=== PATIENT | female | born 1975 | race African-American/Black ===

== ENCOUNTER 2017-02-05 17:05 | Observation (INO) | payer SELFPAY ==
[2016-02-16 16:40] VITALS: BP 132/87
[~2017-02-05 17:05] MED LIST: IBUP-1060 PO; MUPI15CR TP; SULF1TAB24 PO
--- NOTE | 2017-02-05 19:32 | RAD ---
Examination: Ultrasound biophysical profile HISTORY: History of biophysical profile for intrauterine growth attenuation COMPARISON: None available Findings: breathing movement is 2 / 2 motion is 2 /2 tone is 2 /2 Amniotic fluid volume is 2 / 2 Amniotic fluid index 8.4 cm presentation is cephalic Placenta is anterior. heart rate 141 bpm. LMP 06/03/2016 Clinical age 35 weeks and 2 days with estimated date of delivery 03/10/2017 by LMP. IMPRESSION: Normal biophysical profile score of 8 / 8. Electronically signed by: Toney Amado MD (02/05/2017 7:29 PM) [facility]
== END 2017-02-05 21:14 | disposition home or self-care (01) ==
LOC: 3 SO LND 17:05
PROVIDERS: ADMIT Obstetrics & Gynecology; ATTEND Obstetrics & Gynecology
DX: O36.5930 Maternal care for other known or suspected poor fetal growth, third trimester, not applicable or unspecified (principal); Z3A.35 35 weeks gestation of pregnancy
CPT/HCPCS: 76819; G0378; G0379

== ENCOUNTER 2017-02-20 17:02 | Observation (INO) | payer SELFPAY ==
[2016-02-16 16:40] VITALS: BP 132/87
--- NOTE | 2017-02-20 18:06 | RAD ---
Biophysical profile: Clinical indications: IUGR.. COMPARISON: February 05, 2017. Findings: A single intrauterine is present in the cephalic position. heart rate is 150. breathing movements: 2. motion: 2. tone: 2. Amniotic fluid volume: 2. Therefore, the biophysical profile score is 8 out of 8. Cervical length: Not visualized. NAEL using the 4 quadrant method is 9.7 cm. Placenta is anterior. Impression: Biophysical profile score is 8 out of 8. Electronically signed by: Trung Love MD (02/20/2017 6:03 PM) [facility]
== END 2017-02-20 18:58 | disposition home or self-care (01) ==
LOC: 3 SO LND 17:02
PROVIDERS: ADMIT Obstetrics & Gynecology; ATTEND Obstetrics & Gynecology
DX: O36.5930 Maternal care for other known or suspected poor fetal growth, third trimester, not applicable or unspecified (principal)
CPT/HCPCS: 76819; G0378; G0379; 59025

== ENCOUNTER 2017-02-25 04:47 | Inpatient (IN) | payer SELFPAY ==
[~2017-02-25] VITALS: Ht 165.1 cm; Wt 79.4 kg
[2017-02-25] MEDS ORDERED: LIDOCAINE 1% PF 30 ML VIAL. INJ PRN (05:15)
[2017-02-25] MEDS ORDERED: fentaNYL PF VIAL 100 MCG/2 ML VIAL IV PRN (05:15)
[2017-02-25] MEDS ORDERED: 0.9 % SODIUM CHLORIDE 10 ML DISP.SYRIN. IV PRN ×2 (05:15→19:00)
[2017-02-25] MEDS ORDERED: TERBUTALINE 1 MG/ML VIAL. SQ PRN (05:15)
[2017-02-25] MEDS ORDERED: IBUPROFEN 600 MG TABLET. PO PRN (05:15)
[2017-02-25] MEDS ORDERED: OXYTOCIN 30 UNIT/500 ML PREMIX 500 ML IV PRN ×3 (05:15→19:00)
[2017-02-25 06:02] VITALS: BP 102/53
[2017-02-25] MEDS ORDERED: OXYTOCIN in NORMAL SALINE PREMIX 30 UNIT/500 ML BAG. IV ONE (06:30)
[2017-02-25] MEDS ORDERED: ceFAZolin 2GM PREMIX 2 GM/50 ML BAG IV ONE (06:30)
[2017-02-25 07:01] LABS: HEMATOCRIT 31.3 % (36.0-47.0); HEMOGLOBIN 10.8 g/dL (12.0-15.5); RED BLOOD COUNT 3.5 x10^6/uL (3.50-5.40); RED CELL DISTRIBUTION WIDTH 13.8 % (11.5-14.5); WHITE BLOOD COUNT 6.2 x10^3/uL (4.0-11.0)
[2017-02-25] MEDS ORDERED: CITRIC ACID/SODIUM CITRATE 30 ML SOLUTION. ONE (07:09)
[2017-02-25] MEDS ORDERED: FLU VACC QS2017-18 (36MOS+)/PF 0.5 ML SYRINGE. VAX IM ONE (09:00)
[2017-02-25] MEDS: IV RINGERS,LACTATED 1000ML 1,000 ML IV SCH ×2 (10:06→15:15)
--- NOTE | 2017-02-25 16:41 | PDOC1 ---
OB - History Hx of Present Care: Good Care Ultrasounds: Normal mid trimester US Obstetrical Complications: None Medical Complications: None Past Family/Social History * Past Medical, Surgical, Family and Obstetric Histories reviewed from chart. Rubella: Immune RPR/VDRL: Negative GBS Status: Negative HBsAG: Negative OB - Chief Complaint & HPI Date of Admission: Date of Admission: Feb 25, 2017 at 04:47 Chief Complaint/History : 11 Para: 10 EGA: 38 Reason for admission: induction of labor Indication for induction: other (IUGR) Admission Nurse Assessment Rev: Yes Problems: OB - Admission Exam Physical Exam Vitals: VS - Last 72 Hours, by Label Date Time Temp Pulse Resp B/P (MAP) Pulse Ox O2 Delivery O2 Flow Rate FiO2 02/25/17 06:02 98.0 96 20 102/53 (69) Room Air 98.0 HEENT: Normal Heart: Regular Rate Lungs: Clear, Equal Abdomen: Gravid, Non tender, Soft Extremities: Edema Reflexes: Normal Cervical Dilatation: 2cm Effacement: 50% Station: -3 Membranes: Intact Heart Rate: Normal Accelerations: Accelerations Present Short Term Variability: Present Health Counselor Variability: Moderate Contractions on Admission: >10 Minutes Apart Intensity: Mild Text A: 38 wks IUP IUGR Grand Multip P: Admit for IOL pitocin. RICHARD BLUE Jr, MD Feb 25, 2017 16:41
[2017-02-25] MEDS ORDERED: miSOPROStol 200MCG TAB 200 MCG TABLET ONE (17:31)
[2017-02-25] MEDS ORDERED: METHYLERGONOVINE MALEATE 0.2 MG/ML VIAL. IM ONE (17:32)
--- NOTE | 2017-02-25 18:57 | PDOC ---
VAGINAL DELIVERY DATE DATE: 02/25/17 TIME: 18:56 : Other (11) Para: Other (11) EGA: 38 VAGINAL DELIVERY: VTX VACCUM ASSISTED: No PLACENTA: Spontaneous 8/9 SEX: Male WEIGHT Weight [ 2855 gm] Nuchal Cord: No Amniotic Fluid: Clear PAIN: Natural EPISIOTOMY: No EXTENSION: No EBL 300 ml COMPLICATIONS none CONDITION pt. stable Signs of Intrauterine Infectio: None Shoulder Dystocia: No Problems: RICHARD BLUE Jr, MD Feb 25, 2017 18:57
[2017-02-25] MEDS ORDERED: PHENYLEPH/MINERAL OIL/PETROLAT RECTAL OINTMENT 28GM TUBE. RC PRN (19:00)
[2017-02-25] MEDS ORDERED: ZOLPIDEM 5 MG TABLET. PO PRN (19:00)
[2017-02-25] MEDS ORDERED: oxyCODONE/APAP 5/325 1 TAB TABLET PO PRN (19:00)
[2017-02-25] MEDS ORDERED: MMR per PROTOCOL. MC PRN (19:00)
[2017-02-25] MEDS ORDERED: SIMETHICONE 80 MG TAB.CHEW PO PRN (19:00)
[2017-02-25] MEDS ORDERED: HYDROCORTISONE 1% TOPICAL OINTMENT 30GM TUBE. TP PRN (19:00)
[2017-02-25] MEDS ORDERED: diphenhydrAMINE HCL 25 MG CAPSULE PO PRN (19:00)
[2017-02-25] MEDS ORDERED: ACETAMINOPHEN 325 MG TABLET. PO PRN (19:00)
[2017-02-25] MEDS ORDERED: DOCUSATE SODIUM 100 MG CAPSULE. PO PRN (19:00)
[2017-02-25] MEDS ORDERED: MAGNESIUM HYDROXIDE 2,400 MG/30 ML ORAL.SUSP. PO PRN (19:00)
[2017-02-25] MEDS ORDERED: BENZOCAINE 20% TOPICAL AEROSOL SPRAY 57GM CAN. TP PRN (19:00)
[2017-02-25] MEDS ORDERED: MAG HYDROX/ALUMINUM HYD/SIMETH 30 ML ORAL.SUSP PO PRN (19:00)
[2017-02-25] MEDS: IBUPROFEN 800 MG TABLET. PO PRN (20:40)
[2017-02-25 21:15] VITALS: BP 88/53
[2017-02-25 22:43] VITALS: BP 88/56
[2017-02-26 04:52] LABS: BASO % 0 % (0-3); EOS % 1 % (0-3); HEMATOCRIT 33.2 % (36.0-47.0); HEMOGLOBIN 11.3 g/dL (12.0-15.5); LYMPH # 1.9 x10^3/uL (1.0-4.8); LYMPH % 22 % (24-48); MEAN CORPUSCULAR HEMOGLOBIN 31 pg (25-35); MEAN CORPUSCULAR HGB CONC 34 g/dL (31-37); MEAN CORPUSCULAR VOLUME 91 fL (79-100); MONO % 7 % (0-9); NEUT % 71 % (31-73); PLATELET COUNT 198 x10^3/uL (140-400); RED BLOOD COUNT 3.65 x10^6/uL (3.50-5.40); WHITE BLOOD COUNT 8.9 x10^3/uL (4.0-11.0)
[2017-02-26 05:38] VITALS: BP 92/63
[2017-02-26] MEDS ORDERED: INFLUENZA VAX SCREEN BY RX. MC ONE (06:15)
[2017-02-26] MEDS ORDERED: FERROUS SULFATE 325 MG TABLET. PO SCH (08:00)
--- NOTE | 2017-02-26 10:02 | PDOC ---
OB Progress Note Date of Service 02/26/17 Time of Evaluation 1000 Notes PT. feeling well. Pain controlled. Lochia minimal. Breast feeding. Lab Laboratory Tests Test 02/25/17 06:45 02/26/17 04:30 White Blood Count 6.2 x10^3/uL (4.0-11.0) 8.9 x10^3/uL (4.0-11.0) Red Blood Count 3.50 x10^6/uL (3.50-5.40) 3.65 x10^6/uL (3.50-5.40) Hemoglobin 10.8 g/dL (12.0-15.5) 11.3 g/dL (12.0-15.5) Hematocrit 31.3 % (36.0-47.0) 33.2 % (36.0-47.0) Mean Corpuscular Volume 90 fL (79-100) 91 fL (79-100) Mean Corpuscular Hemoglobin 31 pg (25-35) 31 pg (25-35) Mean Corpuscular Hemoglobin Concent 35 g/dL (31-37) 34 g/dL (31-37) Red Cell Distribution Width 13.8 % (11.5-14.5) 14.0 % (11.5-14.5) Platelet Count 191 x10^3/uL (140-400) 198 x10^3/uL (140-400) RPR Titer Additional Testing Non reactive (Non Reactive) Neutrophils (%) (Auto) 71 % (31-73) Lymphocytes (%) (Auto) 22 % (24-48) Monocytes (%) (Auto) 7 % (0-9) Eosinophils (%) (Auto) 1 % (0-3) Basophils (%) (Auto) 0 % (0-3) Neutrophils # (Auto) 6.3 x10^3uL (1.8-7.7) Lymphocytes # (Auto) 1.9 x10^3/uL (1.0-4.8) Monocytes # (Auto) 0.6 x10^3/uL (0.0-1.1) Eosinophils # (Auto) 0.0 x10^3/uL (0.0-0.7) Basophils # (Auto) 0.0 x10^3/uL (0.0-0.2) Laboratory Tests Test 02/26/17 04:30 White Blood Count 8.9 x10^3/uL (4.0-11.0) Red Blood Count 3.65 x10^6/uL (3.50-5.40) Hemoglobin 11.3 g/dL (12.0-15.5) Hematocrit 33.2 % (36.0-47.0) Mean Corpuscular Volume 91 fL (79-100) Mean Corpuscular Hemoglobin 31 pg (25-35) Mean Corpuscular Hemoglobin Concent 34 g/dL (31-37) Red Cell Distribution Width 14.0 % (11.5-14.5) Platelet Count 198 x10^3/uL (140-400) Neutrophils (%) (Auto) 71 % (31-73) Lymphocytes (%) (Auto) 22 % (24-48) Monocytes (%) (Auto) 7 % (0-9) Eosinophils (%) (Auto) 1 % (0-3) Basophils (%) (Auto) 0 % (0-3) Neutrophils # (Auto) 6.3 x10^3uL (1.8-7.7) Lymphocytes # (Auto) 1.9 x10^3/uL (1.0-4.8) Monocytes # (Auto) 0.6 x10^3/uL (0.0-1.1) Eosinophils # (Auto) 0.0 x10^3/uL (0.0-0.7) Basophils # (Auto) 0.0 x10^3/uL (0.0-0.2) Medications Current Medications Sodium Chloride (Normal Saline Flush) 3 ml QSHIFT PRN IV AFTER MEDS AND BLOOD DRAWS; Start 02/25/17 at 05:15 Ringer's Solution 1,000 ml @ 125 mls/hr Q8H IV Last administered on 02/25/17t 15:15; Start 02/25/17 at 05:07 Fentanyl Citrate (Fentanyl 2ml Vial) 100 mcg PRN Q30MIN PRN IV Severe pain; Start 02/25/17 at 05:15 Terbutaline Sulfate (Brethine) 0.25 mg 1X PRN PRN SQ SEE COMMENTS; Start at 05:15; Stop 02/26/17 at 05:14; Status DC Lidocaine HCl 30 ml 1X PRN PRN INJ SEE COMMENTS; Start 02/25/17 at 05:15; Stop 02/27/17 at 05:14 Oxytocin/Sodium Chloride 500 ml @ 0 mls/hr CONT PRN IV SEE I/O RECORD; Start at 05:15 Oxytocin/Sodium Chloride 500 ml @ 0 mls/hr CONT PRN PRN IV Post delivery bleeding; Start 02/25/17 at 05:15 Ibuprofen (Motrin) 600 mg PRN Q6HRS PRN PO PAIN; Start 02/25/17 at 05:15 Info (Do NOT chart on this placeholder) 1 each 1X ONCE MC ; Start 02/26/17 at 06:15; Stop 02/26/17 at 06:16; Status UNV Influenza Virus Vaccine Quadrival (Fluarix Quad [id number] Syringe) 0.5 ml ONCE ONCE VAX IM ; Start 02/25/17 at 09:00; Stop 02/25/17 at 09:01; Status DC Citric Acid/ Sodium Citrate (Bicitra) 30 ml STK-MED ONCE .ROUTE ; Start at 07:09; Stop 02/25/17 at 07:10; Status DC Cefazolin Sodium/ Dextrose 50 ml @ 100 mls/hr 1X ONCE IV ; Start 02/25/17 at 07:15; Stop 02/25/17 at 07:44; Status DC Oxytocin/Sodium Chloride (Oxytocin Premix Infusion) 30 unit STK-MED ONCE IV ; Start 02/25/17 at 06:30; Stop 02/25/17 at 12:14; Status DC Cefazolin Sodium/ Dextrose (Ancef 2gm Premix) 2 gm STK-MED ONCE IV ; Start 02/25 at 06:30; Stop 02/25/17 at 12:14; Status DC Misoprostol (Cytotec 200mcg Tab) 200 mcg STK-MED ONCE .ROUTE ; Start 02/25/17 at 17:31; Stop 02/25/17 at 17:32; Status DC Methylergonovine Maleate (Methergine) 0.2 mg STK-MED ONCE IM ; Start 02/25/17 at 17:32; Stop 02/25/17 at 17:33; Status DC Sodium Chloride (Normal Saline Flush) 10 ml QSHIFT PRN IV AFTER MEDS AND BLOOD DRAWS; Start 02/25/17 at 19:00 Oxytocin/Sodium Chloride 500 ml @ 62.5 mls/hr CONT PRN IV SEE I/O RECORD; Start 02/25/17 at 19:00; Stop 02/26/17 at 02:59; Status DC Acetaminophen (Tylenol) 650 mg PRN Q6HRS PRN PO MILD PAIN / TEMP; Start at 19:00 Ibuprofen (Motrin) 800 mg PRN Q8HRS PRN PO INFLAMMATION/PAIN PREVENTION Last administered on 02/25/17 20:40; Start 02/25/17 at 19:00 Docusate Sodium (Colace) 100 mg PRN BID PRN PO CONSTIPATION; Start 02/25/17 at 19:00 Magnesium Hydroxide (Milk Of Magnesia) 2,400 mg PRN DAILY PRN PO CONSTIPATION; Start 02/25/17 at 19:00 Al Hydroxide/Mg Hydroxide (Mylanta Plus Xs) 30 ml PRN Q4HRS PRN PO HEARTBURN / GAS; Start 02/25/17 at 19:00 Simethicone (Gas-X) 80 mg PRN AFTMEALHC PRN PO GAS / BLOATING; Start 02/25/17 at 19:00 Diphenhydramine HCl (Benadryl) 25 mg PRN Q6HRS PRN PO ITCHING; Start 02/25/17 at 19:00 Benzocaine (Americaine) 1 spray PRN QID PRN TP TOPICAL PAIN Last administered on 02/25/17 20:41; Start 02/25/17 at 19:00 Phenyleph/Shark Oil/Min Oil/Petrol (Preparation H) 1 dyllan PRN QID PRN RC RECTAL PAIN; Start 02/25/17 at 19:00 Hydrocortisone (Cortaid) 1 dyllan PRN QID PRN TP PERINEAL PAIN; Start 02/25/17 at 19:00 Ferrous Sulfate (Feosol) 325 mg BIDWMEALS PO ; Start 02/26/17 at 08:00; Stop at 08:00; Status DC Zolpidem Tartrate (Ambien) 5 mg PRN QHS PRN PO INSOMNIA, MAY REPEAT X1; Start 02/25/17 at 19:00 Info (Do NOT chart on this placeholder) 1 ea 1X PRN PRN MC SEE COMMENTS; Start 02/25/17 at 19:00 Info (Do NOT chart on this placeholder) 1 ea 1X PRN PRN MC SEE COMMENTS; Start 02/25/17 at 19:00 Oxycodone/ Acetaminophen (Percocet 5/325) 2 tab PRN Q4HRS PRN PO MODERATE PAIN , SEVERE PAIN; Start 02/25/17 at 19:00 Active Scripts Active Bactroban Cream (Mupirocin) 15 Gm Cream..g. 1 Dyllan TP TID Bactrim Ds Tablet (Sulfamethoxazole/Trimethoprim) 1 Each Tablet 1 Tab PO BID Ibuprofen 800 Mg Tablet 800 Mg PO PRN Q8HRS PRN Exam Abd: soft, non tender, fundus firm Assessment PPD#1 s/p Plan of Care: Continue current Tx, Mgmt RICHARD BLUE Jr, MD Feb 26, 2017 10:02
[2017-02-26 10:40] VITALS: BP 104/75
[2017-02-26] MEDS: IBUPROFEN 800 MG TABLET. PO PRN ×2 (12:49→22:14)
[2017-02-26 16:20] VITALS: BP 109/71
[2017-02-26 20:58] VITALS: BP 95/64
[2017-02-27 06:00] VITALS: BP 126/72
--- NOTE | 2017-02-27 08:40 | PDOC ---
OB Progress Note Date of Service 02/27/17 Time of Evaluation 0840 Notes PT. feeling well. No complaints. Lab Laboratory Tests Test 02/26/17 04:30 White Blood Count 8.9 x10^3/uL (4.0-11.0) Red Blood Count 3.65 x10^6/uL (3.50-5.40) Hemoglobin 11.3 g/dL (12.0-15.5) Hematocrit 33.2 % (36.0-47.0) Mean Corpuscular Volume 91 fL (79-100) Mean Corpuscular Hemoglobin 31 pg (25-35) Mean Corpuscular Hemoglobin Concent 34 g/dL (31-37) Red Cell Distribution Width 14.0 % (11.5-14.5) Platelet Count 198 x10^3/uL (140-400) Neutrophils (%) (Auto) 71 % (31-73) Lymphocytes (%) (Auto) 22 % (24-48) Monocytes (%) (Auto) 7 % (0-9) Eosinophils (%) (Auto) 1 % (0-3) Basophils (%) (Auto) 0 % (0-3) Neutrophils # (Auto) 6.3 x10^3uL (1.8-7.7) Lymphocytes # (Auto) 1.9 x10^3/uL (1.0-4.8) Monocytes # (Auto) 0.6 x10^3/uL (0.0-1.1) Eosinophils # (Auto) 0.0 x10^3/uL (0.0-0.7) Basophils # (Auto) 0.0 x10^3/uL (0.0-0.2) Medications Current Medications Sodium Chloride (Normal Saline Flush) 3 ml QSHIFT PRN IV AFTER MEDS AND BLOOD DRAWS; Start 02/25/17 at 05:15 Ringer's Solution 1,000 ml @ 125 mls/hr Q8H IV Last administered on 02/25/17t 15:15; Start 02/25/17 at 05:07 Fentanyl Citrate (Fentanyl 2ml Vial) 100 mcg PRN Q30MIN PRN IV Severe pain; Start 02/25/17 at 05:15 Terbutaline Sulfate (Brethine) 0.25 mg 1X PRN PRN SQ SEE COMMENTS; Start at 05:15; Stop 02/26/17 at 05:14; Status DC Lidocaine HCl 30 ml 1X PRN PRN INJ SEE COMMENTS; Start 02/25/17 at 05:15; Stop 02/27/17 at 05:14; Status DC Oxytocin/Sodium Chloride 500 ml @ 0 mls/hr CONT PRN IV SEE I/O RECORD; Start at 05:15 Oxytocin/Sodium Chloride 500 ml @ 0 mls/hr CONT PRN PRN IV Post delivery bleeding; Start 02/25/17 at 05:15 Ibuprofen (Motrin) 600 mg PRN Q6HRS PRN PO PAIN; Start 02/25/17 at 05:15 Info (Do NOT chart on this placeholder) 1 each 1X ONCE MC ; Start 02/26/17 at 06:15; Stop 02/26/17 at 06:16; Status UNV Influenza Virus Vaccine Quadrival (Fluarix Quad [id number] Syringe) 0.5 ml ONCE ONCE VAX IM ; Start 02/25/17 at 09:00; Stop 02/25/17 at 09:01; Status DC Citric Acid/ Sodium Citrate (Bicitra) 30 ml STK-MED ONCE .ROUTE ; Start at 07:09; Stop 02/25/17 at 07:10; Status DC Cefazolin Sodium/ Dextrose 50 ml @ 100 mls/hr 1X ONCE IV ; Start 02/25/17 at 07:15; Stop 02/25/17 at 07:44; Status DC Oxytocin/Sodium Chloride (Oxytocin Premix Infusion) 30 unit STK-MED ONCE IV ; Start 02/25/17 at 06:30; Stop 02/25/17 at 12:14; Status DC Cefazolin Sodium/ Dextrose (Ancef 2gm Premix) 2 gm STK-MED ONCE IV ; Start 02/25 at 06:30; Stop 02/25/17 at 12:14; Status DC Misoprostol (Cytotec 200mcg Tab) 200 mcg STK-MED ONCE .ROUTE ; Start 02/25/17 at 17:31; Stop 02/25/17 at 17:32; Status DC Methylergonovine Maleate (Methergine) 0.2 mg STK-MED ONCE IM ; Start 02/25/17 at 17:32; Stop 02/25/17 at 17:33; Status DC Sodium Chloride (Normal Saline Flush) 10 ml QSHIFT PRN IV AFTER MEDS AND BLOOD DRAWS; Start 02/25/17 at 19:00 Oxytocin/Sodium Chloride 500 ml @ 62.5 mls/hr CONT PRN IV SEE I/O RECORD; Start 02/25/17 at 19:00; Stop 02/26/17 at 02:59; Status DC Acetaminophen (Tylenol) 650 mg PRN Q6HRS PRN PO MILD PAIN / TEMP; Start at 19:00 Ibuprofen (Motrin) 800 mg PRN Q8HRS PRN PO INFLAMMATION/PAIN PREVENTION Last administered on 02/26/17 22:14; Start 02/25/17 at 19:00 Docusate Sodium (Colace) 100 mg PRN BID PRN PO CONSTIPATION; Start 02/25/17 at 19:00 Magnesium Hydroxide (Milk Of Magnesia) 2,400 mg PRN DAILY PRN PO CONSTIPATION; Start 02/25/17 at 19:00 Al Hydroxide/Mg Hydroxide (Mylanta Plus Xs) 30 ml PRN Q4HRS PRN PO HEARTBURN / GAS; Start 02/25/17 at 19:00 Simethicone (Gas-X) 80 mg PRN AFTMEALHC PRN PO GAS / BLOATING; Start 02/25/17 at 19:00 Diphenhydramine HCl (Benadryl) 25 mg PRN Q6HRS PRN PO ITCHING; Start 02/25/17 at 19:00 Benzocaine (Americaine) 1 spray PRN QID PRN TP TOPICAL PAIN Last administered on 02/25/17 20:41; Start 02/25/17 at 19:00 Phenyleph/Shark Oil/Min Oil/Petrol (Preparation H) 1 dyllan PRN QID PRN RC RECTAL PAIN; Start 02/25/17 at 19:00 Hydrocortisone (Cortaid) 1 dyllan PRN QID PRN TP PERINEAL PAIN; Start 02/25/17 at 19:00 Ferrous Sulfate (Feosol) 325 mg BIDWMEALS PO ; Start 02/26/17 at 08:00; Stop at 08:00; Status DC Zolpidem Tartrate (Ambien) 5 mg PRN QHS PRN PO INSOMNIA, MAY REPEAT X1; Start 02/25/17 at 19:00 Info (Do NOT chart on this placeholder) 1 ea 1X PRN PRN MC SEE COMMENTS; Start 02/25/17 at 19:00 Info (Do NOT chart on this placeholder) 1 ea 1X PRN PRN MC SEE COMMENTS; Start 02/25/17 at 19:00 Oxycodone/ Acetaminophen (Percocet 5/325) 2 tab PRN Q4HRS PRN PO MODERATE PAIN , SEVERE PAIN Last administered on 02/27/17t 06:23; Start 02/25/17 at 19:00 Active Scripts Active Bactroban Cream (Mupirocin) 15 Gm Cream..g. 1 Dyllan TP TID Bactrim Ds Tablet (Sulfamethoxazole/Trimethoprim) 1 Each Tablet 1 Tab PO BID Ibuprofen 800 Mg Tablet 800 Mg PO PRN Q8HRS PRN Exam Abd: soft, non tender, fundus firm Assessment PPD#2 s/p Plan of Care: See new orders (D/c home.) RICHARD BLUE Jr, MD Feb 27, 2017 08:40
--- NOTE | 2017-02-27 08:40 | DISCH ---
DISCHARGE INSTRUCTIONS Condition on Discharge Condition on Discharge: Stable Activity After Discharge Activity Instructions for Disc: Activity as tolerated Lifting Instructions after Dis: No heavy lifting Driving Instructions after Dis: Do not drive today Diet after Discharge Diet after Discharge: Regular Contacting the DRRoger after DC Call your doctor for: Concerns you may have Follow-Up Follow up with: Dr. Lincoln in 6 weeks. RICHARD LINCOLN Jr, MD Feb 27, 2017 08:40
[2017-02-27] MEDS ORDERED: IBUP-1060 PO (08:41)
[2017-02-27 11:58] VITALS: BP 87/50
--- NOTE | 2017-02-28 13:37 | PATHOLOGY ---
PATHOLOGY REPORT * * * * * * * * FINAL DIAGNOSIS: Placenta, vaginal delivery: - Third trimester placenta, 452 grams. - Attached trivascular umbilical cord and membranes without significant inflammation. - Placental parenchyma with no significant histopathologic diagnosis. (SKM:divya; 02/28/2017) REPORT ELECTRONICALLY SIGNED BY: Yamil Barnett M.D. DATE/TIME: 02/28/2017 13:36 * * * * * * * * GROSS PATHOLOGY: The specimen is received in formalin, labeled "Isabel Coe and placenta is a 452 g (after removal of umbilical cord and membranes), 17.0 x 15.0 x 3.0 cm oval stout placenta. The trivascular umbilical cord is centrally inserted with cord measuring 39.5 cm in length with an average diameter 1.5 cm. The cord shows decreased twisting. The membranes are thin, pink, lee, pineda, insert marginally, and the point of rupture is 6 cm from edge. The surface is smooth, glistening, dull blue wiggins, and well vascularized. The maternal surface shows intact pink complete cotyledons. Sectioning reveals soft red maroon cut surfaces. Tilting Saw Operator sections are submitted A1-A4. A1 umbilical cord and membrane roll A2 umbilical cord and periphery A3 A4 maternal (JASON; 02/27/2017) INITIAL CPT CODE(S): A; 01410 Professional services performed [place] [address] Technical services performed by [facility] at [address] [place] [address], [address] [address]. SPECIMEN(S) RECEIVED: A.Placenta CLINICAL HISTORY: Vaginal delivery of 6lb 5oz male @ 1847 on 02/25/17, EDC 03/12/17, Apgars 8-9, , late PNC, induction, IUGR, AMA PATIENT: ISABEL STEWART /AGE: 106/03/1975 (Age: 41) PATIENT #: [id number] ALT CASE #: SPECIMEN COLLECTION DATE: 02/25/2017 SPECIMEN RECEIVED DATE: 02/26/2017 [facility] - [address] [place] [address] - PHONE: [phone] * * * END OF REPORT * * *
== END 2017-02-27 15:15 | disposition home or self-care (01) | DRG 775 ==
LOC: 3 SO LND 04:47 → 3 NORTH 21:03
PROVIDERS: ADMIT Obstetrics & Gynecology; ATTEND Obstetrics & Gynecology
PROC: 10E0XZZ Delivery of Products of Conception, External Approach (ICD-10-PCS; principal; 2017-02-25)
PROC: 10907ZC Drainage of Amniotic Fluid, Therapeutic from Products of Conception, Via Natural or Artificial Opening (ICD-10-PCS; 2017-02-25)
DX: O36.5930 Maternal care for other known or suspected poor fetal growth, third trimester, not applicable or unspecified (principal); O09.523 Supervision of elderly multigravida, third trimester; Z37.0 Single live birth; Z3A.38 38 weeks gestation of pregnancy
CPT/HCPCS: 36415; 85025; 85027; 86593; 86850; 86900; 86901; 88307; 90686; J0690; J2590; J7120

== ENCOUNTER → 2018-07-16 | Outpatient (CLI) | payer OTHER ==
--- NOTE | 2018-07-16 16:54 | RAD ---
Obstetrical ultrasound, 07/16/2018: History: , no care, unknown dates There is a single intrauterine fetus in a cephalic orientation. The head was not optimally visualized due to its position. The biparietal diameter was measured at 7.7 cm compatible with a gestational age of 30 weeks and 6 days. This dating correlates well with the femur length measurements, with the gestational age based on all of the measurements being 30 weeks and 4 days yielding a sonographic EDC of 09/20/2018. Normal activity and heart motion were seen. A 4 chamber heart is evident demonstrating a heart rate of 149 bpm. Fluid is identified in the bladder and stomach. The visualized portions of the spine and kidneys are unremarkable. A three-vessel umbilical cord is identified with a normal cord insertion site. The weight was estimated at 3 pounds and 7 ounces +/- 8 ounces. A normal amount of amniotic fluid is evident with the NAEL calculated at 13.8. The placenta lies posteriorly extending into the fundal region. The cervix was not adequately visualized due to the overlying head. IMPRESSION: 1. Single viable intrauterine fetus of 30-31 weeks gestational age as described above. 2. Inadequate delineation of the cervix.
== END | disposition home or self-care (01) ==
LOC: US 11:34
PROVIDERS: ATTEND Obstetrics & Gynecology
DX: O09.523 Supervision of elderly multigravida, third trimester (principal); O26.843 Uterine size-date discrepancy, third trimester; Z3A.31 31 weeks gestation of pregnancy
CPT/HCPCS: 76805; 76817

== ENCOUNTER 2018-09-10 10:17 | Observation (INO) | payer OTHER ==
[2018-09-10] MEDS ORDERED: IV RINGERS,LACTATED 1000ML 1,000 ML IV PRN (10:30)
[2018-09-10] MEDS ORDERED: ACETAMINOPHEN 500 MG TABLET PO PRN (10:30)
== END 2018-09-10 12:31 | disposition home or self-care (01) ==
LOC: 3 SO LND 10:17
PROVIDERS: ADMIT Obstetrics & Gynecology; ATTEND Obstetrics & Gynecology
DX: O62.9 Abnormality of forces of labor, unspecified (principal); Z3A.38 38 weeks gestation of pregnancy
CPT/HCPCS: G0378; G0379

== ENCOUNTER 2018-09-17 11:31 | Inpatient (IN) | payer OTHER ==
[~2018-09-17] VITALS: Ht 170.2 cm; Wt 89.4 kg
[2018-09-17] MEDS ORDERED: IBUPROFEN 400 MG TABLET. PO PRN (12:00)
[2018-09-17] MEDS ORDERED: fentaNYL PF VIAL 100 MCG/2 ML VIAL IV PRN (12:00)
[2018-09-17] MEDS ORDERED: LIDOCAINE 1% PF 30 ML VIAL. INJ PRN (12:00)
[2018-09-17] MEDS ORDERED: OXYTOCIN 30 UNIT/500 ML PREMIX 500 ML IV PRN ×3 (12:00→20:15)
[2018-09-17] MEDS ORDERED: IV RINGERS,LACTATED 1000ML 1,000 ML IV PRN (12:00)
[2018-09-17 12:30] LABS: BILIRUBIN,URINE NEGATIVE (NEG); CLARITY,URINE CLEAR; COLOR,URINE YELLOW; NITRITE,URINE NEGATIVE (NEG); PH,URINE 6.5; PROTEIN,URINE NEGATIVE (NEG-TRACE)
[2018-09-17 13:20] LABS: BASO % 1 % (0-3); EOS # 0.1 x10^3/uL (0.0-0.7); EOS % 1 % (0-3); HEMOGLOBIN 11.8 g/dL (12.0-15.5); LYMPH # 1.6 x10^3/uL (1.0-4.8); LYMPH % 18 % (24-48); MEAN CORPUSCULAR HEMOGLOBIN 30 pg (25-35); MEAN CORPUSCULAR HGB CONC 33 g/dL (31-37); MEAN CORPUSCULAR VOLUME 91 fL (79-100); MONO # 0.5 x10^3/uL (0.0-1.1); MONO % 6 % (0-9); NEUT # 6.6 x10^3uL (1.8-7.7); NEUT % 75 % (31-73); PLATELET COUNT 223 x10^3/uL (140-400); RED BLOOD COUNT 3.97 x10^6/uL (3.50-5.40); RED CELL DISTRIBUTION WIDTH 14.5 % (11.5-14.5); WHITE BLOOD COUNT 8.8 x10^3/uL (4.0-11.0)
[2018-09-17 15:33] VITALS: BP 108/72
--- NOTE | 2018-09-17 17:02 | PDOC1 ---
OB - History Hx of Present Care: Good Care Ultrasounds: Normal mid trimester US Obstetrical Complications: None Medical Complications: None Past Family/Social History * Past Medical, Surgical, Family and Obstetric Histories reviewed from chart. Rubella: Immune RPR/VDRL: Negative GBS Status: Negative HBsAG: Negative OB - Chief Complaint & HPI Date of Admission: Date of Admission: Sep 17, 2018 at 11:31 Chief Complaint/History : 13 Para: 12 EGA: 39 Reason for admission: active labor Admission Nurse Assessment Rev: Yes OB - Admission Exam Physical Exam Vitals: VS - Last 72 Hours, by Label Date Time Temp Pulse Resp B/P (MAP) Pulse Ox O2 Delivery O2 Flow Rate FiO2 09/17/18 15:33 98.2 94 20 108/72 (84) 98.2 HEENT: Normal Heart: Regular Rate Lungs: Clear, Equal Abdomen: Gravid, Non tender, Soft Extremities: Edema Reflexes: Normal Cervical Dilatation: 5cm Effacement: 75% Station: -3 Membranes: Intact Heart Rate: Normal Accelerations: Accelerations Present Director Of Retail Variability: Moderate Contractions on Admission: 6-10 Minutes Apart Intensity: Mild Text A: 39 wks IUP Grand Multip P: Admit for labor management. RICHARD BLUE Jr, MD Sep 17, 2018 17:02
--- NOTE | 2018-09-17 20:08 | PDOC ---
VAGINAL DELIVERY DATE DATE: 09/17/18 TIME: 20:07 : Other (13) Para: Other (13) EGA: 39 VAGINAL DELIVERY: VTX VACCUM ASSISTED: No PLACENTA: Spontaneous 8/9 SEX: Female WEIGHT Weight [ 3495 gm] Nuchal Cord: No Amniotic Fluid: Clear PAIN: Natural EPISIOTOMY: No EXTENSION: Yes (1st degree midline laceration; hemostatic) REPAIRED WITH none EBL 300 ml COMPLICATIONS none CONDITION pt. stable Signs of Intrauterine Infectio: None Shoulder Dystocia: No RICHARD BLUE Jr, MD Sep 17, 2018 20:08
[2018-09-17] MEDS ORDERED: ACETAMINOPHEN 325 MG TABLET. PO PRN (20:15)
[2018-09-17] MEDS ORDERED: SIMETHICONE 80 MG TAB.CHEW PO PRN (20:15)
[2018-09-17] MEDS ORDERED: MAGNESIUM HYDROXIDE 2,400 MG/30 ML ORAL.SUSP. PO PRN (20:15)
[2018-09-17] MEDS ORDERED: PHENYLEPH/MINERAL OIL/PETROLAT RECTAL OINTMENT 28GM TUBE. RC PRN (20:15)
[2018-09-17] MEDS ORDERED: DOCUSATE SODIUM 100 MG CAPSULE. PO PRN (20:15)
[2018-09-17] MEDS ORDERED: diphenhydrAMINE HCL 25 MG CAPSULE PO PRN (20:15)
[2018-09-17] MEDS ORDERED: oxyCODONE/APAP 5/325 1 TAB TABLET PO PRN (20:15)
[2018-09-17] MEDS ORDERED: MAG HYDROX/ALUMINUM HYD/SIMETH 30 ML ORAL.SUSP PO PRN (20:15)
[2018-09-17] MEDS ORDERED: MMR per PROTOCOL. MC PRN (20:15)
[2018-09-17] MEDS ORDERED: BENZOCAINE 20% TOPICAL AEROSOL SPRAY 57GM CAN. TP PRN (20:15)
[2018-09-17] MEDS ORDERED: 0.9 % SODIUM CHLORIDE 10 ML DISP.SYRIN. IV PRN (20:15)
[2018-09-17] MEDS ORDERED: ZOLPIDEM 5 MG TABLET. PO PRN (20:15)
[2018-09-17] MEDS ORDERED: HYDROCORTISONE 1% TOPICAL OINTMENT 30GM TUBE. TP PRN (20:15)
[2018-09-17] MEDS ORDERED: OXYTOCIN PREMIX 30 UNIT/500 ML BAG. IV ONE (22:00)
[2018-09-17] MEDS: IBUPROFEN 400 MG TABLET. PO PRN (22:20)
[2018-09-17 22:30] VITALS: BP 92/57
[2018-09-17 23:30] VITALS: BP 91/67
[2018-09-18 03:00] VITALS: BP 112/74
[2018-09-18 06:39] VITALS: BP 103/74
[2018-09-18] MEDS ORDERED: FERROUS SULFATE 325 MG TABLET. PO SCH (08:00)
[2018-09-18 08:08] LABS: BASO % 0 % (0-3); EOS # 0.1 x10^3/uL (0.0-0.7); EOS % 1 % (0-3); HEMATOCRIT 34.2 % (36.0-47.0); HEMOGLOBIN 11.6 g/dL (12.0-15.5); LYMPH # 1.9 x10^3/uL (1.0-4.8); LYMPH % 19 % (24-48); MEAN CORPUSCULAR HEMOGLOBIN 31 pg (25-35); MEAN CORPUSCULAR HGB CONC 34 g/dL (31-37); MEAN CORPUSCULAR VOLUME 90 fL (79-100); MONO # 0.6 x10^3/uL (0.0-1.1); MONO % 6 % (0-9); NEUT # 7.7 x10^3uL (1.8-7.7); NEUT % 74 % (31-73); PLATELET COUNT 226 x10^3/uL (140-400); RED BLOOD COUNT 3.79 x10^6/uL (3.50-5.40); RED CELL DISTRIBUTION WIDTH 14.2 % (11.5-14.5); WHITE BLOOD COUNT 10.4 x10^3/uL (4.0-11.0)
--- NOTE | 2018-09-18 09:56 | PDOC ---
OB Progress Note Date of Service 09/18/18 Time of Evaluation 0955 Notes PT. feeling well. No complaints. Lab Laboratory Tests Test 09/17/18 12:00 09/17/18 13:05 09/18/18 07:20 Urine Collection Type Unknown Urine Color Yellow Urine Clarity Clear Urine pH 6.5 Urine Specific [place] 1.015 Urine Protein Negative mg/dL (NEG-TRACE) Urine Glucose (UA) Negative mg/dL (NEG) Urine Ketones (Stick) Negative mg/dL (NEG) Urine Blood Negative (NEG) Urine Nitrite Negative (NEG) Urine Bilirubin Negative (NEG) Urine Urobilinogen Dipstick 1.0 mg/dL (0.2 mg/dL) Urine Leukocyte Esterase Negative (NEG) White Blood Count 8.8 x10^3/uL (4.0-11.0) 10.4 x10^3/uL (4.0-11.0) Red Blood Count 3.97 x10^6/uL (3.50-5.40) 3.79 x10^6/uL (3.50-5.40) Hemoglobin 11.8 g/dL (12.0-15.5) 11.6 g/dL (12.0-15.5) Hematocrit 36.0 % (36.0-47.0) 34.2 % (36.0-47.0) Mean Corpuscular Volume 91 fL (79-100) 90 fL (79-100) Mean Corpuscular Hemoglobin 30 pg (25-35) 31 pg (25-35) Mean Corpuscular Hemoglobin Concent 33 g/dL (31-37) 34 g/dL (31-37) Red Cell Distribution Width 14.5 % (11.5-14.5) 14.2 % (11.5-14.5) Platelet Count 223 x10^3/uL (140-400) 226 x10^3/uL (140-400) Neutrophils (%) (Auto) 75 % (31-73) 74 % (31-73) Lymphocytes (%) (Auto) 18 % (24-48) 19 % (24-48) Monocytes (%) (Auto) 6 % (0-9) 6 % (0-9) Eosinophils (%) (Auto) 1 % (0-3) 1 % (0-3) Basophils (%) (Auto) 1 % (0-3) 0 % (0-3) Neutrophils # (Auto) 6.6 x10^3uL (1.8-7.7) 7.7 x10^3uL (1.8-7.7) Lymphocytes # (Auto) 1.6 x10^3/uL (1.0-4.8) 1.9 x10^3/uL (1.0-4.8) Monocytes # (Auto) 0.5 x10^3/uL (0.0-1.1) 0.6 x10^3/uL (0.0-1.1) Eosinophils # (Auto) 0.1 x10^3/uL (0.0-0.7) 0.1 x10^3/uL (0.0-0.7) Basophils # (Auto) 0.0 x10^3/uL (0.0-0.2) 0.0 x10^3/uL (0.0-0.2) Treponema pallidum Antibody Nonreactive (Nonreactive) Laboratory Tests Test 09/17/18 12:00 09/17/18 13:05 09/18/18 07:20 Urine Collection Type Unknown Urine Color Yellow Urine Clarity Clear Urine pH 6.5 Urine Specific [place] 1.015 Urine Protein Negative mg/dL (NEG-TRACE) Urine Glucose (UA) Negative mg/dL (NEG) Urine Ketones (Stick) Negative mg/dL (NEG) Urine Blood Negative (NEG) Urine Nitrite Negative (NEG) Urine Bilirubin Negative (NEG) Urine Urobilinogen Dipstick 1.0 mg/dL (0.2 mg/dL) Urine Leukocyte Esterase Negative (NEG) White Blood Count 8.8 x10^3/uL (4.0-11.0) 10.4 x10^3/uL (4.0-11.0) Red Blood Count 3.97 x10^6/uL (3.50-5.40) 3.79 x10^6/uL (3.50-5.40) Hemoglobin 11.8 g/dL (12.0-15.5) 11.6 g/dL (12.0-15.5) Hematocrit 36.0 % (36.0-47.0) 34.2 % (36.0-47.0) Mean Corpuscular Volume 91 fL (79-100) 90 fL (79-100) Mean Corpuscular Hemoglobin 30 pg (25-35) 31 pg (25-35) Mean Corpuscular Hemoglobin Concent 33 g/dL (31-37) 34 g/dL (31-37) Red Cell Distribution Width 14.5 % (11.5-14.5) 14.2 % (11.5-14.5) Platelet Count 223 x10^3/uL (140-400) 226 x10^3/uL (140-400) Neutrophils (%) (Auto) 75 % (31-73) 74 % (31-73) Lymphocytes (%) (Auto) 18 % (24-48) 19 % (24-48) Monocytes (%) (Auto) 6 % (0-9) 6 % (0-9) Eosinophils (%) (Auto) 1 % (0-3) 1 % (0-3) Basophils (%) (Auto) 1 % (0-3) 0 % (0-3) Neutrophils # (Auto) 6.6 x10^3uL (1.8-7.7) 7.7 x10^3uL (1.8-7.7) Lymphocytes # (Auto) 1.6 x10^3/uL (1.0-4.8) 1.9 x10^3/uL (1.0-4.8) Monocytes # (Auto) 0.5 x10^3/uL (0.0-1.1) 0.6 x10^3/uL (0.0-1.1) Eosinophils # (Auto) 0.1 x10^3/uL (0.0-0.7) 0.1 x10^3/uL (0.0-0.7) Basophils # (Auto) 0.0 x10^3/uL (0.0-0.2) 0.0 x10^3/uL (0.0-0.2) Treponema pallidum Antibody Nonreactive (Nonreactive) Medications Current Medications Ringer's Solution 1,000 ml @ 125 mls/hr Q8H PRN IV PER PROTOCOL Last administered on 09/17/18at 16:14; Start 09/17/18 at 12:00 Fentanyl Citrate (Fentanyl 2ml Vial) 100 mcg PRN Q1HR PRN IV Severe pain; Start 09/17/18 at 12:00 Lidocaine HCl (Xylocaine 1% Pf 30ml Vial) 30 ml 1X PRN PRN INJ SEE COMMENTS; Start 09/17/18 at 12:00; Stop 09/19/18 at 11:59 Oxytocin/Sodium Chloride 500 ml @ 0 mls/hr CONT PRN IV SEE I/O RECORD Last administered on 09/17/18at 19:33; Start 09/17/18 at 12:00 Oxytocin/Sodium Chloride 500 ml @ 0 mls/hr CONT PRN PRN IV Post delivery bleeding; Start 09/17/18 at 12:00 Ibuprofen (Motrin) 800 mg PRN Q6HRS PRN PO PAIN; Start 09/17/18 at 12:00; Stop 09/17/18 at 20:17; Status DC Sodium Chloride (Normal Saline Flush) 10 ml QSHIFT PRN IV AFTER MEDS AND BLOOD DRAWS; Start 09/17/18 at 20:15 Oxytocin/Sodium Chloride 500 ml @ 62.5 mls/hr CONT PRN IV SEE I/O RECORD Last administered on 09/17/18at 22:20; Start 09/17/18 at 20:15; Stop 09/18/18 at 04:14 ; Status DC Acetaminophen (Tylenol) 650 mg PRN Q6HRS PRN PO MILD PAIN / TEMP; Start at 20:15 Ibuprofen (Motrin) 800 mg PRN Q8HRS PRN PO INFLAMMATION/PAIN PREVENTION Last administered on 09/17/18at 22:20; Start 09/17/18 at 20:15 Docusate Sodium (Colace) 100 mg PRN BID PRN PO CONSTIPATION 1ST CHOICE; Start 09/17/18 at 20:15 Magnesium Hydroxide (Milk Of Magnesia) 2,400 mg PRN DAILY PRN PO CONSTIPATION 2ND CHOICE; Start 09/17/18 at 20:15 Al Hydroxide/Mg Hydroxide (Mylanta Plus Xs) 30 ml PRN Q4HRS PRN PO HEARTBURN / GAS; Start 09/17/18 at 20:15 Simethicone (Gas-X) 80 mg PRN AFTMEALHC PRN PO GAS / BLOATING; Start 09/17/18 at 20:15 Diphenhydramine HCl (Benadryl) 25 mg PRN Q6HRS PRN PO ITCHING; Start 09/17/18 at 20:15 Benzocaine (Americaine) 1 spray PRN QID PRN TP TOPICAL PAIN; Start 09/17/18 at 20:15 Phenyleph/Shark Oil/Min Oil/Petrol (Preparation H) 1 dyllan PRN QID PRN RC RECTAL PAIN; Start 09/17/18 at 20:15 Hydrocortisone (Cortaid) 1 dyllan PRN QID PRN TP PERINEAL PAIN; Start 09/17/18 at 20:15 Ferrous Sulfate (Feosol) 325 mg BIDWMEALS PO ; Start 09/18/18 at 08:00 Zolpidem Tartrate (Ambien) 5 mg PRN QHS PRN PO INSOMNIA, MAY REPEAT X1; Start 09/17/18 at 20:15 Info (Do NOT chart on this placeholder) 1 ea 1X PRN PRN MC SEE COMMENTS; Start 09/17/18 at 20:15 Info (Do NOT chart on this placeholder) 1 ea 1X PRN PRN MC SEE COMMENTS; Start 09/17/18 at 20:15 Oxycodone/ Acetaminophen (Percocet 5/325) 2 tab PRN Q4HRS PRN PO MODERATE PAIN , SEVERE PAIN; Start 09/17/18 at 20:15 Oxytocin/Sodium Chloride (Oxytocin Premix Infusion) 30 unit STK-MED ONCE IV ; Start 09/17/18 at 22:00; Stop 09/18/18 at 08:23; Status DC Active Scripts Active Ibuprofen 800 Mg Tablet 800 Mg PO PRN Q6HRS PRN Bactroban Cream (Mupirocin) 15 Gm Cream..g. 1 Dyllan TP TID Bactrim Ds Tablet (Sulfamethoxazole/Trimethoprim) 1 Each Tablet 1 Tab PO BID Ibuprofen 800 Mg Tablet 800 Mg PO PRN Q8HRS PRN Exam Abd: soft, non tender, fundus firm Assessment PPD#1 s/p Plan of Care: Continue current Tx, Mgmt RICHARD BLUE Jr, MD Sep 18, 2018 09:56
[2018-09-18 11:31] VITALS: BP 128/83
[2018-09-18] MEDS: IBUPROFEN 400 MG TABLET. PO PRN (11:58)
[2018-09-18 16:10] VITALS: BP 94/74
[2018-09-18 22:08] VITALS: BP 109/79
[2018-09-19 04:30] VITALS: BP 104/67
[2018-09-19] MEDS: IBUPROFEN 400 MG TABLET. PO PRN (04:36)
--- NOTE | 2018-09-19 07:27 | PDOC3 ---
OB DISCHARGE SUMMARY DATE OF ADMISSION: 09/17/18 DATE OF DISCHARGE: 09/17/18 REASON FOR ADMISSION: Onset of labor INTRAPARTUM PROCEDURES: Spontanous Vag Deliv DISCHARGE DIAGNOSIS: Term Delivered DISCHARGE INFORMATION: Activity (ad jose), Diet (regular), Instructions (pelvic rest x 6 wks) HOSPITAL COURSE Term gestation delivered vaginally without complications. RICHARD BLUE Jr, MD Sep 19, 2018 07:27
[2018-09-19] MEDS ORDERED: IBUP-1060 PO (07:28)
--- NOTE | 2018-09-19 07:29 | DISCH ---
DISCHARGE INSTRUCTIONS Condition on Discharge Condition on Discharge: Stable Activity After Discharge Activity Instructions for Disc: Activity as tolerated Bathing Instructions: Shower-keep dressing dry Lifting Instructions after Dis: No heavy lifting Exercise Instruction after Dis: Progress as tolerated Driving Instructions after Dis: Do not drive today Weight Bearing Status after Di: Other, see below Diet after Discharge Diet after Discharge: Regular Contacting the DRRoger after DC Call your doctor for: Concerns you may have Follow-Up Follow up with: Dr. Lincoln in 6 wks. Treatment/Equipment after DC Adaptive Equipment Issued: None RICHARD LINCOLN Jr, MD Sep 19, 2018 07:29
== END 2018-09-19 14:07 | disposition home or self-care (01) | DRG 807 ==
LOC: 3 SO LND 11:31 → 3 NORTH 22:30
PROVIDERS: ADMIT Obstetrics & Gynecology; ATTEND Obstetrics & Gynecology
PROC: 10E0XZZ Delivery of Products of Conception, External Approach (ICD-10-PCS; principal; 2018-09-17)
DX: O70.0 First degree perineal laceration during delivery (principal); Z37.0 Single live birth; Z3A.39 39 weeks gestation of pregnancy
CPT/HCPCS: 36415; 81003; 85025; 86592; 86850; 86900; 86901; J2590; J7120

== ENCOUNTER 2020-02-11 07:48 | Inpatient (IN) | payer MEDICAID ==
[~2020-02-11] VITALS: Ht 163.8 cm; Wt 92.1 kg
--- NOTE | 2020-02-11 08:17 | PDOC1 ---
OB - History Hx of Present Care: Limited Care Ultrasounds: Normal mid trimester US Obstetrical Complications: None Medical Complications: None Past Family/Social History * Past Medical, Surgical, Family and Obstetric Histories reviewed from chart. Rubella: Immune RPR/VDRL: Negative GBS Status: Negative HBsAG: Negative OB - Chief Complaint & HPI Date of Admission: Date of Admission: Feb 11, 2020 at 07:48 Chief Complaint/History : 14 Para: 12 EGA: 39 Reason for admission: active labor Admission Nurse Assessment Rev: Yes OB - Admission Exam Physical Exam HEENT: Normal Heart: Regular Rate Lungs: Clear, Equal Abdomen: Gravid, Non tender, Soft Extremities: Edema Reflexes: Normal Cervical Dilatation: 5cm Effacement: 75% Station: -2 Membranes: Intact Amniotic Fluid: Clear Heart Rate: Normal Accelerations: Accelerations Present Decelerations: No decelerations Optical Lathe Operator Variability: Moderate Contractions on Admission: 6-10 Minutes Apart Text A: 39 wks IUP Grand Multip P: Admit active labor. RICHARD BLUE Jr, MD Feb 11, 2020 08:17
[2020-02-11 08:26] VITALS: BP 116/67
[2020-02-11] MEDS ORDERED: TERBUTALINE 1 MG/ML VIAL. SQ PRN (08:45)
[2020-02-11] MEDS ORDERED: ONDANSETRON PF 4 MG/2 ML VIAL. IVP PRN (08:45)
[2020-02-11] MEDS ORDERED: CITRIC ACID/SODIUM CITRATE 30 ML SOLUTION. PO PRN (08:45)
[2020-02-11] MEDS ORDERED: fentaNYL PF VIAL 100 MCG/2 ML VIAL IVP PRN (08:45)
[2020-02-11] MEDS ORDERED: IBUPROFEN 400 MG TABLET. PO PRN ×2 (08:45→13:30)
[2020-02-11] MEDS ORDERED: LIDOCAINE 1% PF 30 ML VIAL. INJ PRN (08:45)
[2020-02-11] MEDS ORDERED: IV RINGERS,LACTATED 1000ML 1,000 ML IV PRN (08:45)
[2020-02-11] MEDS ORDERED: 0.9 % SODIUM CHLORIDE 10 ML DISP.SYRIN. IV PRN ×2 (08:45→13:30)
[2020-02-11] MEDS ORDERED: OXYTOCIN 30 UNIT/500 ML PREMIX 500 ML IV PRN ×3 (08:45→13:30)
[2020-02-11 09:01] LABS: BILIRUBIN,URINE NEGATIVE (NEG); COLOR,URINE YELLOW; NITRITE,URINE NEGATIVE (NEG); PROTEIN,URINE NEGATIVE (NEG-TRACE)
[2020-02-11 09:19] LABS: SQUAMOUS EPITHELIAL CELL,UR MANY /LPF; WBC,URINE 20-40 /HPF (0-4)
[2020-02-11 09:20] LABS: BACTERIA,URINE MODERATE /HPF (0-FEW); CLARITY,URINE HAZY
[2020-02-11 10:37] LABS: BASO % 0 % (0-3); EOS # 0.1 x10^3/uL (0.0-0.7); EOS % 1 % (0-3); HEMATOCRIT 36.3 % (36.0-47.0); HEMOGLOBIN 12.5 g/dL (12.0-15.5); LYMPH # 1.3 x10^3/uL (1.0-4.8); LYMPH % 15 % (24-48); MEAN CORPUSCULAR HEMOGLOBIN 31 pg (25-35); MEAN CORPUSCULAR HGB CONC 35 g/dL (31-37); MEAN CORPUSCULAR VOLUME 90 fL (79-100); MONO # 0.4 x10^3/uL (0.0-1.1); MONO % 5 % (0-9); NEUT # 7.2 x10^3/uL (1.8-7.7); NEUT % 79 % (31-73); PLATELET COUNT 208 x10^3/uL (140-400); RED BLOOD COUNT 4.02 x10^6/uL (3.50-5.40); WHITE BLOOD COUNT 9.1 x10^3/uL (4.0-11.0)
[2020-02-11] MEDS ORDERED: METHYLERGONOVINE MALEATE 0.2 MG/ML VIAL. IM ONE ×2 (13:20→13:30)
--- NOTE | 2020-02-11 13:28 | PDOC ---
VAGINAL DELIVERY DATE DATE: 02/11/20 TIME: 13:27 : Other (14) Para: Other (13) EGA: 39 VAGINAL DELIVERY: VTX VACCUM ASSISTED: No PLACENTA: Spontaneous 8/9 SEX: Male WEIGHT Weight [ 8 lbs. 6 oz] Nuchal Cord: No Amniotic Fluid: Clear PAIN: Natural EPISIOTOMY: No EXTENSION: No EBL 300 ml COMPLICATIONS none CONDITION pt. stable Signs of Intrauterine Infectio: None Shoulder Dystocia: No RICHARD BLUE Jr, MD Feb 11, 2020 13:28
[2020-02-11] MEDS ORDERED: diphenhydrAMINE HCL 25 MG CAPSULE PO PRN (13:30)
[2020-02-11] MEDS ORDERED: BENZOCAINE 20% TOPICAL AEROSOL SPRAY 57GM CAN. TP PRN (13:30)
[2020-02-11] MEDS ORDERED: ACETAMINOPHEN 325 MG TABLET. PO PRN (13:30)
[2020-02-11] MEDS ORDERED: MMR per PROTOCOL. MC PRN (13:30)
[2020-02-11] MEDS ORDERED: SIMETHICONE 80 MG TAB.CHEW PO PRN (13:30)
[2020-02-11] MEDS ORDERED: DOCUSATE SODIUM 100 MG CAPSULE. PO PRN (13:30)
[2020-02-11] MEDS ORDERED: ZOLPIDEM 5 MG TABLET. PO PRN (13:30)
[2020-02-11] MEDS ORDERED: TDaP (Adacel) per PROTOCOL. MC PRN (13:30)
[2020-02-11] MEDS ORDERED: PHENYLEPH/MINERAL OIL/PETROLAT RECTAL OINTMENT TUBE. RC PRN (13:30)
[2020-02-11] MEDS ORDERED: oxyCODONE/APAP 5/325 1 TAB TABLET PO PRN (13:30)
[2020-02-11] MEDS ORDERED: HYDROCORTISONE 1% TOPICAL OINTMENT 30GM TUBE. TP PRN (13:30)
[2020-02-11] MEDS ORDERED: MAG HYDROX/ALUMINUM HYD/SIMETH 30 ML ORAL.SUSP PO PRN (13:30)
[2020-02-11] MEDS ORDERED: MAGNESIUM HYDROXIDE 2,400 MG/30 ML ORAL.SUSP. PO PRN (13:30)
[2020-02-11 16:06] VITALS: BP 106/64
[2020-02-11 16:30] VITALS: BP 116/53
[2020-02-11] MEDS ORDERED: FERROUS SULFATE 325 MG TABLET. PO SCH (17:00)
[2020-02-11 17:45] VITALS: BP 107/77
[2020-02-11 19:00] VITALS: BP 109/68
[2020-02-11 23:00] VITALS: BP 77/45
[2020-02-12 03:22] VITALS: BP 89/59
[2020-02-12 07:38] LABS: BASO % 0 % (0-3); EOS # 0.3 x10^3/uL (0.0-0.7); EOS % 3 % (0-3); HEMATOCRIT 37.1 % (36.0-47.0); HEMOGLOBIN 12.9 g/dL (12.0-15.5); LYMPH # 2.6 x10^3/uL (1.0-4.8); LYMPH % 25 % (24-48); MEAN CORPUSCULAR HEMOGLOBIN 32 pg (25-35); MEAN CORPUSCULAR HGB CONC 35 g/dL (31-37); MEAN CORPUSCULAR VOLUME 91 fL (79-100); MONO # 0.5 x10^3/uL (0.0-1.1); MONO % 5 % (0-9); NEUT # 6.7 x10^3/uL (1.8-7.7); NEUT % 67 % (31-73); PLATELET COUNT 226 x10^3/uL (140-400); RED BLOOD COUNT 4.08 x10^6/uL (3.50-5.40); RED CELL DISTRIBUTION WIDTH 14.3 % (11.5-14.5); WHITE BLOOD COUNT 10.1 x10^3/uL (4.0-11.0)
[2020-02-12] MEDS ORDERED: MULTIVITAMIN with MINERAL TABLET. PO SCH (09:00)
[2020-02-12 10:51] VITALS: BP 116/80
--- NOTE | 2020-02-12 13:41 | PDOC3 ---
OB DISCHARGE SUMMARY DATE OF ADMISSION: 02/11/20 DATE OF DISCHARGE: 02/12/20 REASON FOR ADMISSION: Onset of labor INTRAPARTUM PROCEDURES: Spontanous Vag Deliv DISCHARGE DIAGNOSIS: Term Delivered DISCHARGE INFORMATION: Activity (ad jose), Diet (regular), Instructions (pelvic rest x 6 wks) HOSPITAL COURSE Term gestation delivered vaginally without complications. RICHARD BLUE Jr, MD Feb 12, 2020 13:41
[2020-02-12] MEDS ORDERED: IBUP-1060 PO (13:42)
--- NOTE | 2020-02-12 13:43 | DISCH ---
DISCHARGE INSTRUCTIONS Condition on Discharge Condition on Discharge: Stable Activity After Discharge Activity Instructions for Disc: Activity as tolerated Bathing Instructions: Shower-keep dressing dry Lifting Instructions after Dis: No heavy lifting, No pulling or pushing, Do not lift >10 pounds Exercise Instruction after Dis: Progress as tolerated Driving Instructions after Dis: Do not drive today Weight Bearing Status after Di: As tolerated Diet after Discharge Diet after Discharge: Regular Diet Texture: Regular Contacting the DRRoger after DC Call your doctor for: Concerns you may have Follow-Up Follow up with: Dr. Lincoln in 6 wks Treatment/Equipment after DC Adaptive Equipment Issued: None RICHARD LINCOLN Jr, MD Feb 12, 2020 13:43
[2020-02-12 15:55] VITALS: BP 116/90
[2020-02-12 16:00] VITALS: BP 116/90
== END 2020-02-12 16:00 | disposition home or self-care (01) | DRG 807 ==
LOC: OBSVTOIN 07:48 → 3 SO LND 07:48 → 3 NORTH 15:50
PROVIDERS: ADMIT Obstetrics & Gynecology; ATTEND Obstetrics & Gynecology
PROC: 10E0XZZ Delivery of Products of Conception, External Approach (ICD-10-PCS; principal; 2020-02-11)
DX: O80 Encounter for full-term uncomplicated delivery (principal); Z37.0 Single live birth; Z3A.39 39 weeks gestation of pregnancy; Z20.828 Contact with and (suspected) exposure to other viral communicable diseases
CPT/HCPCS: 36415; 81001; 85025; 86592; 86850; 86900; 86901; 87086; 87426; J2210; J2590; J7120; G0378; U0003-CS

== ENCOUNTER 2021-06-21 12:35 | Emergency (ER) | payer MEDICAID ==
[~2021-06-21] VITALS: Ht 170.2 cm; Wt 90.9 kg
[2021-06-21 12:52] VITALS: BP 137/98
[2021-06-21] MEDS ORDERED: CEPHALEXIN 250 MG CAPSULE. PO STA (13:19)
[2021-06-21] MEDS ORDERED: HYDROcodone/APAP 5/325MG 1 TAB TABLET PO STA (13:19)
[2021-06-21] MEDS ORDERED: IBUPROFEN 200 MG TABLET. PO STA (13:19)
[2021-06-21] MEDS ORDERED: BACITRACIN TOPICAL OINT PACKET. TP ONE (13:30)
[2021-06-21] MEDS ORDERED: DIPHTH,PERTUSS(ACELL),TET TOX 0.5 ML DISP.SYRIN. VAX IM ONE (13:30)
--- NOTE | 2021-06-21 13:31 | PHYS DOC ---
Past Medical History Past Medical History: No Pertinent History (KENN NEVILLE APRN) Past Surgical History: No Surgical History (KENN NEVILLE APRN) Smoking Status: Never Smoker Alcohol Use: None Drug Use: None (KENN NEVILLE APRN) General Adult EDM: Chief Complaint: TOE PROBLEM HPI: HPI: Patient is a 46-year-old female who presents to the emergency department reporting she slipped and fall yesterday lacerating her right #3 toe. Patient reports this happened at approximately 1 PM yesterday, did not feel as if she needed suture repair and did not seek medical care. Patient reports her pain has increased to a 5 out of 10 and she is worried her toe might be broken. Patient reports her last tetanus immunization was greater than 5 years ago. Patient reports she last took ibuprofen 200 mg tablet last night at approximately 2300 with minimal relief in discomfort. Patient denies injury to other parts of her body. Patient denies other physical complaints or physical concerns. (KENN NEVILLE APRN) Review of Systems: Review of Systems: 14 body systems of review of systems have been reviewed. See HPI for pertinent positives and negative responses, otherwise all other systems are negative, nonpertinent or noncontributory. Constitutional: Negative except as outlined in HPI above. Skin: Negative except as outlined in HPI above. Eyes: Negative except as outlined in HPI above. HENT: Negative except as outlined in HPI above. Respiratory: Negative except as outlined in HPI above. Cardiovascular: Negative except as outlined in HPI above. GI: Negative except as outlined in HPI above. : Negative except as outlined in HPI above. Musculoskeletal: Negative except as outlined in HPI above. Integument: Negative except as outlined in HPI above. Neurologic: Negative except as outlined in HPI above. Endocrine: Negative except as outlined in HPI above. Lymphatic: Negative except as outlined in HPI above. Psychiatric: Negative except as outlined in HPI above. (KENN NEVILLE APRN) Heart Score: C/O Chest Pain: No Risk Factors: Risk Factors: DM, Current or recent (<one month) smoker, HTN, HLP, family history of CAD, obesity. Risk Scores: Score 0 - 3: 2.5% MACE over next 6 weeks - Discharge Home Score 4 - 6: 20.3% MACE over next 6 weeks - Admit for Clinical Observation Score 7 - 10: 72.7% MACE over next 6 weeks - Early Invasive Strategies (KENN NEVILLE APRN) Current Medications: Current Medications Medications (Trade) Dose Ordered Sig/[place] Start Time Stop Time Status Last Admin Dose Admin Acetaminophen/ Hydrocodone Bitart (Lortab 5/325) 1 tab 1X STAT 06/21/21 13:19 06/21/21 13:22 DC Cephalexin HCl (Keflex) 500 mg 1X STAT 06/21/21 13:19 06/21/21 13:22 DC Diphtheria/ Tetanus/Acell Pertussis (Boostrix) 0.5 ml ONCE ONCE 06/21/21 13:30 06/21/21 13:31 Ibuprofen (Motrin) 600 mg 1X STAT 06/21/21 13:19 06/21/21 13:22 DC (KENN NEVILLE APRN) Allergies: Allergies: Allergies Coded Allergies Type Severity Reaction Last Updated Verified No Known Drug Allergies 06/21/21 No (KENN NEVILLE APRN) Physical Exam: PE: Constitutional: Well developed, well nourished, no acute distress, non-toxic appearance. 46-year-old female in no apparent distress. HENT: Normocephalic, atraumatic. Eyes: Conjunctiva normal, no discharge. Neck: Normal range of motion, no stridor. Cardiovascular: No cyanosis appreciated, distal cap refill less than 2 seconds. Lungs & Thorax: Patient is in no respiratory distress, no audible adventitious lung sounds appreciated. Abdomen: Nontender, no abnormalities noted. Skin: Warm, dry, no erythema, no rash. See extremity note for focused skin examination. Back: No tenderness, no deformities. Extremities: No tenderness, no cyanosis, no clubbing, ROM intact, no edema. Except for right foot #3 toe has 1.2 cm laceration along the lateral aspect. There is no purulent drainage, it is not bleeding. Limited passive range of motion related to pain. No crepitus or deformity appreciated. No active flexion or extension of toes #2, #3, #4, and #5. Distal cap refill is less than 2 seconds all toes of the right foot. No swelling appreciated. 2+ dorsalis pedis pulses bilaterally. Neurologic: Alert and oriented X 3, normal motor function, normal sensory function, no focal deficits noted. Psychologic: Affect normal, judgement normal, mood normal. (KENN NEVILLE APRN) Current Patient Data: Vital Signs: Vital Signs Date Time Temp Pulse Resp B/P (MAP) Pulse Ox O2 Delivery O2 Flow Rate FiO2 06/21/21 12:52 98.6 99 16 137/98 (111) 98 Room Air 98.6 (KENN NEVILLE APRN) EKG: EKG: [] (KENN NEVILLE APRN) Radiology/Procedures: Radiology/Procedures: STATUS: REG ER ORD. PHYSICIAN: KENN NEVILLE APRN REASON: Attention third toe, blunt trauma with laceration PROCEDURE: TOES RIGHT XR RT TOE 2+ VIEWS DATE: 06/21/2021 1:25 PM INDICATION: Attention third toe, blunt trauma with laceration COMPARISON: None. FINDINGS: Bones: There is no evidence of acute fracture or dislocation. Joints: The joint spaces are normal. Miscellaneous: None. IMPRESSION: No evidence of acute fracture. Electronically signed by: Vega Molina MD (06/21/2021 2:06 PM) [id number] (KENN NEVILLE APRN) Course & Med Decision Making: Course & Med Decision Making Pertinent Labs and Imaging studies reviewed. (See chart for details) 46-year-old female, vital signs reviewed, presents emergency department concerning laceration right third toe after a slip and fall where she lacerated it against a doorway. Physical examination suspicious for tenderness injury, laceration is greater than 24 hours old, will not repaired by suture, will cleanse and apply bacitracin and bandage, will x-ray to rule out acute fracture. Patient's DTaP immunization brought up-to-date today in the emergency department. X-ray of right third digit nonconcerning for acute fracture. Discussed findings with patient, started patient on Keflex regimen. Discussed with patient strict follow-up with orthopedic surgeon related to laceration and suspicion for tendon injury. Discussed with patient strict follow-up with primary care provider this week for wound reevaluation. Discussed nonsuturable wound care. Use of [id number] NSAIDs or Tylenol for ongoing aches and pains related to laceration. Patient gave verbal understanding of and is amenable to ED discharge planning. Discussed with the patient all findings and diagnostic testing as well as the need to follow-up with their primary care provider for further evaluation and treatment or return to the ED if any new or worsening symptoms. Strict return precautions were also discussed at length, the patient voiced understanding and agreement with the discharge planning. The patient was nontoxic in appearance, in no apparent distress, and hemodynamically stable at the time of disposition. (KENN NEVILLE APRN) Dragon Disclaimer: Dragon Disclaimer: This electronic medical record was generated, in whole or in part, using a voice recognition dictation system. (KENN NEVILLE APRN) Departure Departure Impression: Primary Impression: Laceration of toe Qualified Codes: S91.114A - Laceration without foreign body of right lesser toe(s) without damage to nail, initial encounter Disposition: HOME / SELF CARE / HOMELESS Condition: GOOD Referrals: RICHARD BLUE Jr, MD (PCP) FABBY HEATON MD Patient Instructions: Laceration, Old, Not Sutured Additional Instructions: You were seen today in the emergency department after an injury to your right third toe. This injury happened greater than 24 hours ago, the laceration you suffered will heal with daily wound cleansing and application of antibiotic ointment and bandage over the next several days. Please watch for signs and symptoms of infection. As we discussed you may use [id number] Tylenol or Motrin for ongoing aches and pains I have started you on a medication called Keflex that you will take 4 times a day for the next 7 days to prevent any infection. We discussed at length I am suspicious that your toe injury may have disrupted your tendon. Therefore I am recommending that you follow-up with a orthopedic surgeon, please call today or tomorrow for the soonest appointment. This is a must. Dr. Heaton's information is given above. As we also discussed, please follow-up with your primary care physician for reexamination of this wound. See your doctor before the end of this week so that he may reevaluate this laceration and healing. Thank you for visiting our Emergency Department. It was a pleasure taking care of you today in the emergency department and we appreciate you trusting us with your care. If any additional problems come up don't hesitate to return to visit us. Please follow up with your primary care provider so they can plan additional care if needed and know about the problem that you had. If symptoms worsen come back to the Emergency Department. Any concerning symptoms that start such as chest pain, shortness of air, weakness or numbness on one side of the body, running high fevers or any other concerning symptoms return to the ER. EMERGENCY DEPARTMENT GENERAL DISCHARGE INSTRUCTIONS Thank you for coming to [facility] Emergency Department (ED) today and trusting us with you care. We trust that you had a positive experience in our Emergency Department. If you wish to speak to the department management, you may call the Director at [phone]. YOUR FOLLOW UP INSTRUCTIONS ARE FOLLOWS: 1. Do you have a private Doctor? If you do not have a private doctor, please ask for a resource list of physicians or clinics that may be able to assist you with follow up care. 2. The Emergency Physicain has interpreted your x-rays. The X-Ray specialist will also review them. If there is a change in the findings, you will be notified in 48 hours when at all possible. 3. A lab test or culture has been done, your results will be reviewed and you will be notified if you need a change in treatment. ADDITIONAL INSTRUCTIONS AND INFORMATION: 1. Your care today has been supervised by a physician who is specially trained in emergency care. Many problems require more than one evaluation for a complete diagnosis and treatment. We recommend that you schedule your follow up appointment as recommended to ensure complete treatment of you illness or injury. If you are unable to obtain follow up care and continue to have a problem, or if your condition worsens, we recommend that you return to the ED. 2. We are not able to safely determine your condition over the phone nor are we able to give sound medical advice over the phone. For these safety reasons, if you call for medical advice we will ask you to come to the ED for further evaluation. 3. If you have any questions regarding these discharge instructions please call the ED at [phone]. SAFETY INFORMATION: In the interest of safety, wellness, and injury prevention; we encourage you to wear your sealbelt, if you smoke; quite smoking, and we encourage family to use a protective helmet for bicycling and other sporting events that present an increased risk for head injury. IF YOUR SYMPTOMS WORSEN OR NEW SYMPTOMS DEVELOP, OR YOU HAVE CONCERNS ABOUT YOUR CONDITION; OR IF YOUR CONDITION WORSENS WHILE YOU ARE WAITING FOR YOUR FOLLOW UP APPOINTMENT; EITHER CONTACT YOUR PRIMARY CARE DOCTOR, THE PHYSICIAN WHOSE NAME AND NUMBER YOU WERE GIVEN, OR RETURN TO THE ED IMMEDIATELY. Scripts Cephalexin (CEPHALEXIN) 500 Mg Tablet 1 TAB PO QID for toe laceration for 7 Days, #28 TAB Prov: KENN NEVILLE APRN 06/21/21 Attending Signature I have participated in the care of this patient and I have reviewed and agree with all pertinent clinical information above including history, exam, and recommendations. (ANNEL GUY DO) KENN NEVILLE APRN Jun 21, 2021 13:30 ANNEL GUY DO Jun 21, 2021 15:56
--- NOTE | 2021-06-21 14:08 | RAD ---
XR RT TOE 2+ VIEWS DATE: 06/21/2021 1:25 PM INDICATION: Attention third toe, blunt trauma with laceration COMPARISON: None. FINDINGS: Bones: There is no evidence of acute fracture or dislocation. Joints: The joint spaces are normal. Miscellaneous: None. IMPRESSION: No evidence of acute fracture. Electronically signed by: Vega Molina MD (06/21/2021 2:06 PM) [id number]
[2021-06-21] MEDS ORDERED: CEPH500T PO (15:10)
== END 2021-06-21 15:58 | disposition home or self-care (01) ==
LOC: ER 12:35
DX: S91.114A Laceration without foreign body of right lesser toe(s) without damage to nail, initial encounter (principal); W01.0XXA Fall on same level from slipping, tripping and stumbling without subsequent striking against object, initial encounter; Y93.89 Activity, other specified; Y92.89 Other specified places as the place of occurrence of the external cause; Y99.8 Other external cause status
CPT/HCPCS: 73660; 90471; 90715; 99284

== ENCOUNTER 2021-10-23 15:34 | Emergency (ER) | payer MEDICAID ==
[~2021-10-23] VITALS: Ht 167.6 cm; Wt 86.0 kg
[~2021-10-23 15:34] MED LIST changes: +CEPH500T PO
[2021-10-23] MEDS ORDERED: KETOROLAC 15 MG/ML VIAL. ONE (16:13)
[2021-10-23] MEDS ORDERED: IV RINGERS,LACTATED 1000ML 1,000 ML IV SCH (16:15)
[2021-10-23] MEDS ORDERED: HYDROmorphone 2 MG/ML INJ. IV/SQ PRN (16:15)
[2021-10-23 16:21] LABS: BASO % 0 % (0-3); EOS # 0.1 x10^3/uL (0.0-0.7); EOS % 1 % (0-3); LYMPH # 1.7 x10^3/uL (1.0-4.8); LYMPH % 19 % (24-48); MEAN CORPUSCULAR HEMOGLOBIN 31 pg (25-35); MEAN CORPUSCULAR HGB CONC 35 g/dL (31-37); MEAN CORPUSCULAR VOLUME 90 fL (79-100); MONO # 0.5 x10^3/uL (0.0-1.1); MONO % 6 % (0-9); NEUT # 6.8 x10^3/uL (1.8-7.7); NEUT % 74 % (31-73); PLATELET COUNT 170 x10^3/uL (140-400); RED BLOOD COUNT 4.78 x10^6/uL (3.50-5.40); RED CELL DISTRIBUTION WIDTH 14.4 % (11.5-14.5); WHITE BLOOD COUNT 9.2 x10^3/uL (4.0-11.0)
[2021-10-23] MEDS ORDERED: KETOROLAC 15 MG/ML VIAL. IVP ONE (16:30)
[2021-10-23 16:33] LABS: CALCIUM 8.7 mg/dL (8.5-10.1); CREATININE 0.7 mg/dL (0.6-1.0); POTASSIUM 3.9 mmol/L (3.5-5.1)
[2021-10-23 16:36] LABS: PREG TEST PT QUAL NEGATIVE (NEG)
[2021-10-23 16:38] LABS: ALBUMIN 2.3 g/dL (3.4-5.0); ALBUMIN/GLOBULIN RATIO 0.4 (1.0-1.7); TOTAL BILIRUBIN 0.3 mg/dL (0.2-1.0); TOTAL PROTEIN 7.9 g/dL (6.4-8.2)
--- NOTE | 2021-10-23 17:22 | RAD ---
Exam: CT of abdomen and pelvis without contrast INDICATION: Flank, Back pain TECHNIQUE: Sequential axial images through the abdomen and pelvis obtained without IV contrast. Sagit mitch and coronal reformatted images were reconstructed from the axial data and reviewed. Exposure: One or more of the following in the visualized dose reduction techniques were utilized for this examination: 1. Automated exposure control 2. Adjustment of the MA and/or KV according to patient size 3. Use of iterative of reconstructive technique Comparisons: None FINDINGS: Heart size is normal. No pericardial effusion. Visualized lung bases are clear. No pleural effusion. Evaluation solid organs is limited secondary to noncontrast technique. Liver, spleen, pancreas, gallbladder and adrenals are unremarkable. No perinephric inflammation or hydronephrosis. No renal or ureteral calculi are identified. Bladder is partially distended and not well evaluated. Uterus not enlarged. No abnormal adnexal mass. Moderate amount stool noted in colon. Appendix is normal. No free intra-abdominal air or fluid. No ob struction. Abdominal aorta has normal course and caliber. No enlarged intra-abdominal lymph nodes are identified. No suspicious osseous lesions or acute fractures. IMPRESSION: No renal or ureteral calculi. No evidence for obstructive uropathy. Electronically signed by: Sofía Gutiérrez MD (10/23/2021 5:20 PM) [facility]
[2021-10-23] MEDS ORDERED: HYDR-2761 PO (18:00)
--- NOTE | 2021-10-23 18:01 | PHYS DOC ---
Past Medical History Past Medical History: No Pertinent History Additional Past Medical Histor: hyperlipidemia Past Surgical History: No Surgical History Smoking Status: Never Smoker Alcohol Use: None Drug Use: None General Adult EDM: Chief Complaint: ABDOMINAL PAIN HPI: HPI: Patient is a 46 year old female who presents to the emergency department today with complaints of right flank pain. Patient states about 8:00 last night she began to have right flank pain. There are no palliative or provocative factors for the pain. She describes it as a squeezing pain. She states it radiates from her right back and flank into her groin. She states the pain is a 9 out of 10. The pain has been intermittent. She has had some associated nausea and vomiting. She denies any fevers or chills. She denies any difficulty urinating. She denies any blood in her urine. She denies any dysuria. She denies any history of stones. Review of Systems: Review of Systems: Constitutional: Denies fever or chills. [] Eyes: Denies change in visual acuity. [] HENT: Denies nasal congestion or sore throat. [] Respiratory: Denies cough or shortness of breath. [] Cardiovascular: Denies chest pain or edema. [] GI: Denies bloody stools or diarrhea. [] : Denies dysuria. [] Musculoskeletal: Denies back pain or joint pain. [] Integument: Denies rash. [] Neurologic: Denies headache, focal weakness or sensory changes. [] Endocrine: Denies polyuria or polydipsia. [] Lymphatic: Denies swollen glands. [] Psychiatric: Denies depression or anxiety. [] Heart Score: C/O Chest Pain: No Current Medications: Current Medications Medications (Trade) Dose Ordered Sig/Charlotte Start Time Stop Time Status Last Admin Dose Admin Hydromorphone HCl (Dilaudid) 1 mg PRN Q15MIN PRN 10/23/21 16:15 10/24/21 16:14 10/23/21 16:18 1 MG Ketorolac Tromethamine (Toradol 15mg Vial) 15 mg 1X ONCE 10/23/21 16:30 10/23/21 16:33 DC 10/23/21 16:14 15 MG Ringer's Solution 1,000 ml @ 1,000 mls/hr Q1H 10/23/21 16:15 10/23/21 17:14 DC 10/23/21 16:30 1,000 MLS/HR Allergies: Allergies: Allergies Coded Allergies Type Severity Reaction Last Updated Verified No Known Drug Allergies 06/21/21 No Physical Exam: PE: Constitutional: Well developed, well nourished, no acute distress, non-toxic appearance. [] HENT: Normocephalic, atraumatic, bilateral external ears normal, oropharynx moist, no oral exudates, nose normal. [] Eyes: PERRLA, EOMI, conjunctiva normal, no discharge. [] Neck: Normal range of motion, no tenderness, supple, no stridor. [] Cardiovascular:Heart rate regular rhythm, no murmur [] Lungs & Thorax: Bilateral breath sounds clear to auscultation [] Abdomen: Bowel sounds normal, soft, no tenderness, no masses, no pulsatile masses. [] Skin: Warm, dry, no erythema, no rash. [] Back: No tenderness, no CVA tenderness. [] Extremities: No tenderness, no cyanosis, no clubbing, ROM intact, no edema. [] Neurologic: Alert and oriented X 3, normal motor function, normal sensory function, no focal deficits noted. [] Psychologic: Affect normal, judgement normal, mood normal. [] Current Patient Data: Labs: Laboratory Tests Test 10/23/21 16:10 White Blood Count 9.2 x10^3/uL (4.0-11.0) Red Blood Count 4.78 x10^6/uL (3.50-5.40) Hemoglobin 15.0 g/dL (12.0-15.5) Hematocrit 43.0 % (36.0-47.0) Mean Corpuscular Volume 90 fL (79-100) Mean Corpuscular Hemoglobin 31 pg (25-35) Mean Corpuscular Hemoglobin Concent 35 g/dL (31-37) Red Cell Distribution Width 14.4 % (11.5-14.5) Platelet Count 170 x10^3/uL (140-400) Neutrophils (%) (Auto) 74 % (31-73) H Lymphocytes (%) (Auto) 19 % (24-48) L Monocytes (%) (Auto) 6 % (0-9) Eosinophils (%) (Auto) 1 % (0-3) Basophils (%) (Auto) 0 % (0-3) Neutrophils # (Auto) 6.8 x10^3/uL (1.8-7.7) Lymphocytes # (Auto) 1.7 x10^3/uL (1.0-4.8) Monocytes # (Auto) 0.5 x10^3/uL (0.0-1.1) Eosinophils # (Auto) 0.1 x10^3/uL (0.0-0.7) Basophils # (Auto) 0.0 x10^3/uL (0.0-0.2) Sodium Level 139 mmol/L (136-145) Potassium Level 3.9 mmol/L (3.5-5.1) Chloride Level 104 mmol/L (98-107) Carbon Dioxide Level 28 mmol/L (21-32) Anion Gap 7 (6-14) Blood Urea Nitrogen 7 mg/dL (7-20) Creatinine 0.7 mg/dL (0.6-1.0) Estimated GFR (Cockcroft-Gault) 109.0 BUN/Creatinine Ratio 10 (6-20) Glucose Level 94 mg/dL (70-99) Calcium Level 8.7 mg/dL (8.5-10.1) Total Bilirubin 0.3 mg/dL (0.2-1.0) Aspartate Amino Transferase (AST) 26 U/L (15-37) Alanine Aminotransferase (ALT) 31 U/L (14-59) Alkaline Phosphatase 97 U/L (46-116) Total Protein 7.9 g/dL (6.4-8.2) Albumin 2.3 g/dL (3.4-5.0) L Albumin/Globulin Ratio 0.4 (1.0-1.7) L Lipase 80 U/L (73-393) Serum Test, Qualitative Negative (NEG) Laboratory Tests 10/23/21 16:10 Laboratory Tests 10/23/21 16:10 Vital Signs: Vital Signs Date Time Temp Pulse Resp B/P (MAP) Pulse Ox O2 Delivery O2 Flow Rate FiO2 10/23/21 16:23 98.1 84 22 127/76 (93) 99 Room Air 98.1 EKG: EKG: [] Radiology/Procedures: Radiology/Procedures: PROCEDURE: CT ABDOMEN PELVIS WO CONTRAST Exam: CT of abdomen and pelvis without contrast INDICATION: Flank, Back pain TECHNIQUE: Sequential axial images through the abdomen and pelvis obtained without IV contrast. Sagittal and coronal reformatted images were reconstructed from the axial data and reviewed. Exposure: One or more of the following in the visualized dose reduction techniques were utilized for this examination: 1. Automated exposure control 2. Adjustment of the MA and/or KV according to patient size 3. Use of iterative of reconstructive technique Comparisons: None FINDINGS: Heart size is normal. No pericardial effusion. Visualized lung bases are clear. No pleural effusion. Evaluation solid organs is limited secondary to noncontrast technique. Liver, spleen, pancreas, gallbladder and adrenals are unremarkable. No perinephric inflammation or hydronephrosis. No renal or ureteral calculi are identified. Bladder is partially distended and not well evaluated. Uterus not enlarged. No abnormal adnexal mass. Moderate amount stool noted in colon. Appendix is normal. No free intra- abdominal air or fluid. No obstruction. Abdominal aorta has normal course and caliber. No enlarged intra-abdominal lymph nodes are identified. No suspicious osseous lesions or acute fractures. IMPRESSION: No renal or ureteral calculi. No evidence for obstructive uropathy. Electronically signed by: Sofía Gutiérrez MD (10/23/2021 5:20 PM) [facility] Impression: Right flank pain Course & Med Decision Making: Course & Med Decision Making Patient evaluated at the bedside with a physical exam. Basic labs obtained and are unremarkable. UA is negative. test is negative. CT scan of the abdomen and pelvis without contrast shows no evidence of any acute intra- abdominal abnormality specifically no evidence of stone or appendicitis. On reassessment patient pain has resolved. We will discharge her home with a prescription for Lortab and have her follow-up with her PCP Keri Disclaimer: Keri Disclaimer: This electronic medical record was generated, in whole or in part, using a voice recognition dictation system. Departure Departure Impression: Primary Impression: Right flank pain Disposition: HOME / SELF CARE / HOMELESS Condition: IMPROVED Referrals: RICHARD BLUE Jr., MD (PCP) Patient Instructions: Flank Pain, Urth-jr-Dmip Scripts Hydrocodone Bit/Acetaminophen (HYDROCODONE-APAP 5-325 ) 1 Tab Tablet 1 TAB PO PRN Q6HRS PRN for PAIN for 2 Days, #6 TAB 0 Refills Prov: MARTINEZ NOBLE MD 10/23/21 MARTINEZ NOBLE MD October 23, 2021 18:01
[2021-10-23 18:13] VITALS: BP 107/60
== END 2021-10-23 18:21 | disposition home or self-care (01) ==
LOC: ER 15:34
DX: R10.9 Unspecified abdominal pain (principal)
CPT/HCPCS: 36415; 74176; 80053; 83690; 84703; 85025; 96361; 96374; 96375; 99284; J1170; J1885; J7120